=== PATIENT | female | born 1955 | race Caucasian/White ===

== ENCOUNTER 2022-06-12 10:18 | Observation (INO) ==
--- NOTE | 2022-05-24 09:58 | PAT Medication Instructions ---
Medication Instructions Date of Service May 24, 2022 Home Medications Medication Instructions Recorded Jerzy Trejo #1 ea 05/13/22 Medication List: aspirin 81 mg chewable tablet 81 mg PO QAM levothyroxine 100 mcg capsule 112 mcg PO QAM Joint Restore 1 tab PO QAM Olipure 1 tab PO QPM Hudson 2 Plus 1 tab PO QAM cholecalciferol (vitamin D3) 125 mcg (5,000 unit) tablet (Vitamin D3) 125 mcg PO QAM cyanocobalamin (vitamin B-12) 1,000 mcg tablet (Vitamin B-12) 1,000 mcg PO QAM ferrous fumarate 55 mg (18 mg iron) tablet,extended release 65 mg PO UD hydralazine 10 mg tablet 10 mg PO BID ASK your prescriber and surgeon aspirin 81 mg chewable tablet 81 mg PO QAM STOP taking 2 weeks before surgery Hudson 2 Plus 1 tab PO QAM Joint Restore 1 tab PO QAM Olipure 1 tab PO QPM DO NOT take the morning of surgery cholecalciferol (vitamin D3) 125 mcg (5,000 unit) tablet (Vitamin D3) 125 mcg PO QAM cyanocobalamin (vitamin B-12) 1,000 mcg tablet (Vitamin B-12) 1,000 mcg PO QAM ferrous fumarate 55 mg (18 mg iron) tablet,extended release 65 mg PO UD Take morning of surgery With a small sip of water, OTHERWISE NOTHING TO EAT OR DRINK AFTER MIDNIGHT: levothyroxine 100 mcg capsule 112 mcg PO QAM hydralazine 10 mg tablet 10 mg PO BID Take evening before surgery hydralazine 10 mg tablet 10 mg PO BID Other Notes If you have any questions please call us at [phone] or [phone] or [phone] or [phone]
--- NOTE | 2022-05-30 12:37 | Anesthesiology Consultation ---
Date of Service May 30, 2022 Assessment & Plan (1) Encounter for pre-operative examination: - COVID screening: Per assessment on 05/30: No known COVID-19 positive contacts or current COVID-19 related symptoms. Travel screen negative. Patient vaccinated. At surgeon discretion if preop Covid testing being done. - Cardiology office visit (02/26/22): "An echocardiogram was done 09/20/21 (ordered by PCP). This indicated normal LV size and function with an ejection fraction of 55%. Mild mitral regurgitation was noted. Otherwise echocardiogram was unremarkable.. Unchanged from her previous study.. Because of ongoing complaints of chest discomfort, Lexiscan Cardiolite stress test.. Blood pressure noted to be elevated. Hydralazine will be increased" > stress test performed 05/09/2022 was unremarkable. - Outpatient joint assessment: Pt currently scheduled for inpatient pathway. If surgeon requests review for outpatient joint pathway, patient is not recommended candidate for outpatient joint program from anesthesia standpoint. - Cardiology office visit (): "Patient denies any anginal complaints at this time.. occasional chest pain with increased anxiety. Pain is director of revenue cycle management in duration and like a stabbing sensation. No radiation or relief with rest. No further ischemia testing at this time.. Lexiscan stress test 05/09/22 which was negative for ischemia/infarction, EF 66%. No further ischemic testing warranted at this time.. Patients blood pressure today is 146/84. Patient declines increasing the hydralazine at this time. Patient is going to restart her amlodipine 2.5mg daily" Chart Review Chart Review: Acceptable Risk for Surgery and Patient seen in Pre Admission Testing Teaching & Discussion Pre-Anesthesia Teaching/Discussion Notes: Instructed NPO after midnight before surgery,except medications with 15 cc of water. Medication instructions provided according to the PAT guidelines. History Surgery Operation Date: 06/12/22 07:15 Proposed Procedures p Left Total Knee Arthroplasty - Conner James MD Height/Weight Height: 5 ft 4.75 in Weight: 72.8 kg Allergies Allergy/AdvReac Type Severity Reaction Status Date / Time amoxicillin [From Augmentin] Allergy Severe Vomiting Verified 05/23/22 13:09 clavulanic acid Allergy Severe Vomiting Verified 05/23/22 13:09 [From Augmentin] Xioqzhu-ZWV-GfL Reductase Allergy Severe body aches Verified 05/23/22 13:09 Inhibitor [Tjrhlgh-Xxq-Fak Reductase Inhibitor] Medications Home Medications Medication Instructions Recorded Confirmed Last Taken aspirin 81 mg chewable tablet 81 mg PO QAM 05/06/19 05/23/22 Unknown levothyroxine 100 mcg capsule 112 mcg PO QAM 05/06/19 05/23/22 Unknown Wheeled Walker #1 ea 05/13/22 05/13/22 Unknown Joint Restore 1 tab PO QAM 05/23/22 05/23/22 Unknown Olipure 1 tab PO QPM 05/23/22 05/23/22 Unknown [place] 2 Plus 1 tab PO QAM 05/23/22 05/23/22 Unknown cholecalciferol (vitamin D3) 125 125 mcg PO QAM 05/23/22 05/23/22 Unknown mcg (5,000 unit) tablet (Vitamin D3) cyanocobalamin (vitamin B-12) 1,000 mcg PO QAM 05/23/22 05/23/22 Unknown 1,000 mcg tablet (Vitamin B-12) ferrous fumarate 55 mg (18 mg 65 mg PO UD 05/23/22 05/23/22 Unknown iron) tablet,extended release hydralazine 10 mg tablet 10 mg PO BID 05/23/22 05/23/22 Unknown amlodipine 2.5 mg tablet 2.5 mg PO DAILY 05/30/22 05/30/22 Unknown Past Medical History Medical History CAD (coronary artery disease) 2012 > stents x2 Follows with Dr. De La Cruz/WARD Hernandez History of COVID-19 Early to mid 2021- headache, cough > resolved History of myocardial infarction 2010 History of pneumonia 03/2022- treated with abx (not Covid, no hospitalization) Hyperlipidemia Hypertension Hypothyroidism TIMMY (obstructive sleep apnea) CPAP Right knee DJD Thyroid cancer s/p thyroidectomy (no chemo/no XRT) TMJ (temporomandibular joint disorder) Exercise / Class Metabolic Activity II 4-5 Yardwork/Stairs/Walk up hill Past Family History Family History Sister Allergies Asthma Family/Other Hypertension Siblings Heart disease Siblings Past Surgical History Surgical History History of bilateral fallopian tube excision History of bladder surgery 90' History of section 1983 History of heart artery stent 2012- stents x2 History of hysterectomy 1990s History of nasal surgery History of nasal surgery History of shoulder surgery History of thyroidectomy Removed d/t cancer Hx of colonoscopy Nausea and vomiting after administration of anesthetic agent Past Anesthesia History No Hx of Anesthesia Complications (except PONV) and No Family Hx of Anesthesia Complications History of PONV History of PONV and Hx of Motion Sickness Social History Smoking Status: Never smoker Do You Dip or Chew Tobacco: No Hx Alcohol Use: Yes alcohol intake frequency: holidays/special occasions only Hx Substance Use: No substance use type: does not use Substance Use Type Other:: cbd cream in joint gummie Review of Systems Patient denies chest pain, shortness of breath, dyspnea on exertion, fever, chills, cough, wheezing, palpitations. Physical Exam Vital Signs VITALS BP 170/82 (Per patient: BP closely monitored by cardio, systolic BPs typically 140s) P 54 TEMP SP02 96%RA RESP 18 PHYSICAL Full cervical extension range of motion. Full TMJ range of motion. TMD 3 finger breaths Mallampati Score 2 Dentition: intact, + crowns Lungs: clear throughout to auscultation Cardiac: regular rate and rhythm, no murmurs noted Spine: normal Carotid arteries: negative bruit Extremities: no edema Lab Results Anesthesia Preop Results Results Anesthesia Widget: WBC 7.15 K/ul (4.8-10.8) 05/30/22 Hgb 13.7 g/dl (12.0-16.0) 05/30/22 Hct 41.6 % (37.0-47.0) 05/30/22 Plt 235 K/uL (130-400) 05/30/22 Na 142 mmol/L (136-145) 05/30/22 K 3.6 mmol/L (3.5-5.1) 05/30/22 Cl 107 mmol/L (98-107) 05/30/22 CO2 32 mmol/L (21-32) 05/30/22 BUN 16 mg/dl (6-23) 05/30/22 Creat 0.76 mg/dl (0.6-1.2) 05/30/22 Glucose Level 93 mg/dl (70-99(Fasting)) 05/30/22 PT 10.8 Seconds (9.0-12.0) 05/30/22 PTT 25.5 Seconds (21.0-31.0) 05/30/22 INR 1.0 (0.9-1.1) 05/30/22 Blood Type A Positive 05/30/22 Antibody Screen NEGATIVE 05/30/22 Testing Electrocardiogram Date: 04/13/22 SR at 64bpm. "Normal ECG" Chest X-Ray Date: 05/30/22 Findings: + NAD Echocardiogram Date: 09/20/21 EF 55%. Cannot rule out RWMA. Mild MR. PASP cannot be estimated but right atrial pressure normal. Stress Test Date: 05/09/22 Type: nuclear Normal SPECT images. LV global systolic function is normal. Nonspecific nausea and lightheadedness during regadenoson infusion. No ischemic ST segment changes on stress ECG. Occasional isolated PACs. 67% MPHR. Stress report difficult to read. Attempts to obtain more clear copy unsuccessful. Per cardiology office visit note 05/29/22, "Lexiscan stress test on 05/09/22 which was negative for ischemia/infarction, EF 66%. No further ischemic testing warranted at this time" COVID-19 Risk Screen Screening Information COVID-19 Screen Date: 05/30/22 Exposure 21 Days Family/Household +COVID Last 21 Days: No Exposure 10 Days Any COVID Exposure Last 10 Days: No Symptoms Last 10 Days Experienced COVID Sx Last 10 Days: No + COVID 0-90 Days COVID + in Last 0-90 Days: No
--- NOTE | 2022-06-08 19:40 | History and Physical Report ---
DATE OF ADMISSION: 06/12/2022. CHIEF COMPLAINT: Left knee pain. HISTORY OF PRESENT ILLNESS: The patient is a 67-year-old female from [place] who presents for shirley atment of her left knee. She has a several-year history of increasing left knee pain and discomfort that has gotten worse over the past 2 years. No particular injury. She has had extensive conservati ve care including 3 steroid shots and 2 rounds of viscosupplementation provided by Michael whipple in [place]. This has become less successful over time. She has global pain. The more she is up on it, the more it hurts. The knee feels unstable. She would like to have it fixed. Of note, the patient does have a significant cardiac history with cardiac stent placement in the past . She did have a stress echo, which showed no signs of ischemia. PAST MEDICAL HISTORY: 1. Coronary artery disease, status post stent placement with a negative workup and stress echo. 2. Hypothyroidism. 3. Depression. 4. Elevated cholesterol. 5. Hypertension. 6. Anemia. 7. Thyroid cancer. PAST SURGICAL HISTORY: 1. . 2. Bladder surgery. 3. Shoulder surgery. 4. Hysterectomy. 5. Eye surgery. 6. Nose surgery. 7. Thyroid removal. 8. Ovarian tube removal. ALLERGIES: PERCOCET, METOPROLOL, VALSARTAN, HYDROCHLOROTHIAZIDE. CURRENT MEDICATIONS: Include: 1. Hydralazine. 2. Aspirin. 3. Levothyroxine. 4. Amlodipine. 5. Vitamin D. 6. Vitamin B12. 7. Coenzyme Q. 8. Iron. 9. . 10. CBD. SOCIAL HISTORY: A 67-year-old female patient, . Lives in [place]. Five children. Rare alc ohol intake. Does not smoke. FAMILY HISTORY: Significant for thyroid cancer, heart disease. REVIEW OF SYSTEMS: Significant for coronary artery disease with a recent workup, which was negative with a negative stress echo. She may have some reflux. No current chest pain. No bleeding problems . No history of DVT or PE. PHYSICAL EXAMINATION: GENERAL: Pleasant middle-aged female. Looks younger than her stated age. HEENT: Benign. NECK: Supple. No lymphadenopathy. LUNGS: Clear to auscultation. HEART: Has a regular rate and rhythm. ABDOMEN: Soft, nontender, nondistended. EXTREMITIES: Grossly neurovascularly intact except as follows: Examination of the left knee reveale d the patient walks with a slight bit of a limp. She has got varus alignment to her knee. Tender ov er the medial joint line. Range of motion is 5-120. No instability. No pain with hip motion. X-RAYS: X-rays of the left knee reveal advanced medial compartment arthritis. She has got complete loss of her medial joint space. She has subchondral sclerosis. Lateral and patellofemoral compartme nts are pretty well preserved. ASSESSMENT: A 67-year-old female with a history of multiple comorbidities including coronary artery disease, thyroid cancer, status post resection, depression, elevated cholesterol, hypertension with a dvanced left knee medial compartment arthritis. She has failed conservative treatment and would like to have her left knee replaced. PLAN: We are going to proceed with left knee replacement. The risks and benefits of this procedure were explained to the patient and include but not limited to DVT, PE, , infection, neurological injury, vascular injury, bleeding problem, pain, limited range of motion, stiffness, failure to relie ve her symptoms, incomplete relief of symptoms, etc. The patient understands and desires to proceed. Informed consent was obtained. She will take her thyroid medicine in the morning of surgery with a sip of water. She is planning to be discharged to home using [facility] program. Job ID: [id number]
[~2022-06-12 10:18] MED LIST: ACETAMINOPHEN 500 MG TAB PO SCH; ALLERGY Noted to ORDERED Medication SCH; BUPIVACAINE LIPOSOME/PF 266 MG, BUPIVACAINE/EPINEPHRINE 50 ML, SODIUM CHLORIDE 0.9% PF ... INFIL SCH; CeleBREX 200 MG CAP PO SCH; FAMOTIDINE 20 MG TAB PO SCH; LR 500ML BOLUS, THEN 15ML/HR IV SCH; LR 60ML/HR IV SCH; METOCLOPRAMIDE HCL 10 MG TABLET PO SCH; ROPIVACAINE 0.5% 5 MG/ML 30 ML VIAL ONE; Scopolamine 1 MG TDSY TD SCH; TRANEXAMIC ACID 1,000 MG **IV Intra-op IV SCH; ceFAZolin 2000MG 2,000 MG/15 ML SYR IV SCH
--- NOTE | 2022-06-12 10:38 | History & Physical Bridge Note ---
Date of Service June 12, 2022 History & Physical Bridge Note I have examined the patient, reviewed the History & Physical and in the interval since the performance of the History & Physical I have noted the following changes of clinical significance: no changes noted
[2022-06-12] MEDS ORDERED: Nursing to Pharmacy Communication SCH (11:15)
[2022-06-12] MEDS ORDERED: MIDAZOLAM HCL 1 MG/ML 2ML VIAL ONE (11:42)
[2022-06-12] MEDS ORDERED: fentaNYL citrate PF 100 MCG/2 ML VIAL ONE (11:42)
[2022-06-12] MEDS ORDERED: PROPOFOL IV EMULSION 10 MG/ML 20 ML VIAL IV ONE ×2 (11:45→14:26)
[2022-06-12] MEDS ORDERED: BUPIVACAINE 0.5 % 5 MG/1 ML PF 10ML VIAL ONE (12:30)
[2022-06-12] MEDS ORDERED: EPINEPHrine INJ 1 MG/ML AMP ONE (12:30)
[2022-06-12] MEDS ORDERED: SODIUM CHLORIDE 0.9% PF 50 ML VIAL ONE (12:45)
[2022-06-12] MEDS ORDERED: BUPIVACAINE/EPINEPHRINE 0.25% 1:200,000 30 ML VIAL ONE (12:45)
[2022-06-12] MEDS ORDERED: BUPIVACAINE LIPOSOME 1.3% 266 MG/20 ML VIAL ONE (12:45)
--- NOTE | 2022-06-12 14:53 | Operative Report ---
PG Post Operative Report Pre & Post Diagnosis Operation Date: 06/12/22 12:30 Pre-Op Diagnosis: Left Knee Advanced Degenerative Joint Disease Post-Op Diagnosis: Left Knee Advanced Degenerative Joint Disease I identified the patient and participated in the time-out.: Yes Procedure Operation Date: 06/12/22 12:30 Actual Procedures p Left Total Knee Arthroplasty(Left) - Conner James MD Surgeon Conner James MD Co Op Frank Navarrete PA-C Estimated Blood Loss 50 Findings Consistent with Post-Op Diagnosis Operative findings were advanced left knee DJD. She had extensive grade 4 dqxk-vo-heyz disease and eburnation of the entire medial compartment. The rest of her knee was pretty well-preserved. She did have a varus deformity to her knee and a slight flexion contracture. Moderate-sized joint effusion. Specimens Left knee sent for pathology Drains None Anesthesia Type Spinal MAC Complications none Disposition Accompanied Patient To Recovery: No Indications Patient is 67-year-old female has had a several year history of gradual progressive increasing left knee pain discomfort describes gotten worse over time. She been through extensive conservative treatment which became less successful. X-rays show advanced medial compartment arthritis. She elected proceed with surgical treatment. Description of Procedure Operative implants consist of: 1 Biomet size 62.5 left posterior stabilized femoral component. 2. Biomet size 67 tibial tray. 3. 10 mm posterior stabilized polyethylene insert. 4. 28 x 8 all poly patella. The patient was taken to the operating, identified, placed on the operating table supine position protectors were properly padded. IV antibiotics tried by anesthesia team. A spinal anesthetic and abductor canal block had been provided in the holding area. Mederos catheter was placed in sterile fashion. Left factor was then placed in the left lower extremity then prepped and draped in usual sterile fashion. The left leg was elevated and exsanguinated with use of an Esmarch and the tourniquet was placed at 300 mmHg. An anterior approach left knee was then performed through a longitudinal incision centered over the patella. Sharp dissection was got through subcutaneous tissue down the extensor mechanism. A medial parapatellar arthrotomy incision was made. Some subperiosteal dissection was carried out medially. The fat pad was resected from Neath patella tendon. The lateral patellofemoral ligament was released. Patella subluxated laterally knee was flexed. The osteophytes taken off distal femur. The ACL and PCL were then released from distal femur and the tibia subluxated anteriorly. External tibial alignment jig was then placed in the interface the tibia and adjusted 14 mm medially. Proximal tibial cut was made remove millimeter bone at most from most deficient aspect medial tibial plateau. Some osteophytes taken off medially. The tibia sized to a size 67. Attention drawn the femur. The distal femur was then with a sharp drill. Intramedullary canal was suction. A left 5 degree valgus cutting guide was placed. Distal femoral cutting block was pinned in place. Distal femoral cut was made to take an additional 3 mm of bone off distal femur. The femur was then sized to a size 62.5. The AP cutting block was pinned parallel to the epicondylar axis which was 4 degrees of external rotation. Anterior cut, anterior chamfer, posterior cut, posterior chamfer cuts were made. The box cutting guide was placed in a just slightly lat eral and the box cut was made. The knee was flexed. The remnants of the medial and lateral menisci were excised. The osteophytes taken off the posterior aspect the femur. A trial femoral component was placed. Tibial tray was pinned in maximum external rotation and the drill and stem punch used to create defect in proximal tibia for the tibial tray. The knee was then trialed and 10 mm insert fit most appropriately. Attention drawn the patella. The patella was cleaned of all soft tissues. Patella thickness measured 18 mm in thickness was cut down to 12. It was sized to a size 28 patella. The lug holes were drilled for the 28 patella. The lateral osteophyte was removed. Patella button was placed. Knee was taken through range of motion patella tracked nicely with no thumbs test. Attention drawn to placing permanent components. All trial components were removed. Bone plug was placed in the distal femur limit blood loss. Double batch Palacos G cement was mixed. Biomet Vanguard size 62.5 left posterior stabilized femoral component, size 67 tibial tray, 810 mm posterior stabilized polyethylene insert, and a 28 x 8 all poly patella then cemented in place. New spreadout in full extension till cement hardened. Final cement check was then performed. The pericapsular tissues were injected with total of 100 cc of combination of 20 cc of Exparel, 30 cc normal saline, 50 cc of quarter percent Marcaine with epinephrine. Patient did receive 1 g tranexamic acid. The tourniquet was let down for final tourniquet time 54 minutes. Hemostasis reduced electrocautery. Extensor mechanism then closed with combination 1 PDS suture #1 Vicryl suture in [id number] fashion. Extensor mechanism checked found to be intact the subcutaneous tissue then closed with 2 Dexon suture in a buried interrupted fashion skin was closed skin bennie. Leg was then cleaned and dried and sterile dressing with Xeroform, 4 x 4's, sterile cast padding, Morris bandage were applied. Patient then transferred to the recovery room in stable condition. Patient tolerated procedure well and there were no complications. Frank Navarrete, my physician emergency veterinary assistant, was present for the entire procedure. His assistance was essential and required for appropriate patient positioning, prepping and draping, surgical exposure, performing the technical details of the operation, placement the implants, closure of the wound, and placement of the sterile bandage. I attest to the content of the Intraoperative Record and any orders documented therein. Any exceptions are noted below.
[2022-06-12] MEDS ORDERED: FLUMAZENIL 0.1 MG/1 ML 10 ML VIAL IV PRN (15:08)
[2022-06-12] MEDS ORDERED: NALOXONE HCL 0.4 MG/1 ML VIAL/CARP IV PRN ×2 (15:08→16:00)
[2022-06-12] MEDS ORDERED: fentaNYL citrate PF 100 MCG/2 ML VIAL IV PRN (15:08)
[2022-06-12] MEDS ORDERED: ATROPINE SULFATE 0.1 MG/ML 10ML SYR IV PRN (15:08)
[2022-06-12] MEDS ORDERED: ePHEDrine sulfate 50 MG/ML AMP IV PRN (15:08)
[2022-06-12] MEDS ORDERED: PROMETHAZINE HCL 12.5 MG in SODIUM CHLORIDE 0.9% 50 ML IV PRN (15:08)
[2022-06-12] MEDS ORDERED: ONDANSETRON INJ 2 MG/ML 2 ML VIAL IV PRN (15:08)
[2022-06-12] MEDS ORDERED: HYDROmorphone INJ 1 MG/ML SYRINGE IV PRN (15:08)
[2022-06-12] MEDS ORDERED: ALUMINUM/MAGNESIUM SUSP 30 ML UDC PO PRN (16:00)
[2022-06-12] MEDS ORDERED: METOCLOPRAMIDE HCL INJ 5 MG/ML 2 ML VIAL IV PRN (16:00)
[2022-06-12] MEDS ORDERED: MAGNESIUM HYDROXIDE SUSP 30 ML UDC PO PRN (16:00)
[2022-06-12] MEDS ORDERED: SODIUM CHLORIDE 0.9% 1000ML 1,000 ML IV SCH (16:00)
[2022-06-12] MEDS ORDERED: bisacodyL 10 MG SUPP PR PRN (16:00)
[2022-06-12] MEDS ORDERED: HYDROmorphone INJ 0.5 MG/0.5 ML SYR IV PRN (16:00)
--- NOTE | 2022-06-12 16:00 | Anesthesiology Progress Note ---
Date of Service June 12, 2022 Anesthesia Post Procedure Vital Signs Vital Signs: Temp Pulse Resp BP Pulse Ox O2 Del Method O2 Flow Rate 06/12/22 15:35 36.1 C L 51 L 18 151/74 H 99 Room Air 06/12/22 15:30 49 L 17 163/66 H 98 Room Air 06/12/22 15:19 46 L 14 170/73 H 99 Room Air 06/12/22 15:10 46 L 13 164/65 H 99 Room Air 06/12/22 15:00 51 L 14 147/73 H 100 Room Air 06/12/22 14:50 36.2 C L 55 L 15 147/76 H 100 Oxymask 5 06/12/22 14:41 36.2 C L 61 17 141/76 H 99 Oxymask 9 06/12/22 10:59 37 C 57 L 20 158/84 H 97 Room Air Pain Intensity Left Knee: Pain Intensity: 0 Transfer of Care Handoff Completed per policy Notes Mental Status: alert / awake / arousable and participated in evaluation Patient Amnestic to Procedure: Yes Nausea / Vomiting: adequately controlled Pain: adequately controlled Airway Patency, RR, SpO2: stable & adequate BP & HR: stable & adequate Hydration State: stable & adequate Anesthetic Complications: no major complications apparent
[2022-06-12] MEDS: KETOROLAC TROMETHAMINE 15 MG/ML VIAL IV SCH ×2 (16:28→21:08)
[2022-06-12] MEDS: Scopolamine CHECK PATCH PLACEMENT SCH ×2 (16:28→23:39)
[2022-06-12] MEDS: ASCORBIC ACID 500 MG TAB PO SCH (16:37)
[2022-06-12] MEDS: FERROUS SULFATE 325 MG TAB PO SCH (16:37)
[2022-06-12] MEDS: ONDANSETRON INJ 2 MG/ML 2 ML VIAL IV PRN (16:46)
[2022-06-12] MEDS ORDERED: dexAMETHasone 10 MG in SYRINGE 0 ML IV SCH (17:00)
--- NOTE | 2022-06-12 19:28 | XRay Report ---
XR knee LT 1 or 2V routine CLINICAL HISTORY: Surgical Post Op TECHNIQUE: 2 views of the left knee were obtained. Comparison: Comparison is made to knee radiographs 05/13/2022 FINDINGS: Patient is status post total knee arthroplasty with expected postsurgical changes including soft tiss ue swelling and subcutaneous emphysema. No periarticular lucency or hardware fracture is seen. IMPRESSION: Expected postoperative appearance status post placement of total knee arthroplasty. ACT 112: Negative or not required by law. Electronically signed by: Anival Vallejo M.D. 06/12/2022 7:27 PM
[2022-06-12] MEDS ORDERED: TRANEXAMIC ACID / 0.7% NACL 1,000 MG/100 ML BAG IV SCH (21:00)
[2022-06-12] MEDS: ACETAMINOPHEN 500 MG TAB PO SCH (21:06)
[2022-06-12] MEDS: DOCUSATE SODIUM 100 MG CAP PO SCH (21:07)
[2022-06-12] MEDS: ASPIRIN 81 MG ECTAB PO SCH (21:07)
[2022-06-12] MEDS: ceFAZolin 1000MG 1,000 MG/7.5 ML SYR IV SCH (21:07)
[2022-06-12] MEDS: SENNA 8.6 MG TAB PO SCH (21:08)
[2022-06-13] MEDS: ONDANSETRON INJ 2 MG/ML 2 ML VIAL IV PRN ×2 (01:42→09:20)
[2022-06-13] MEDS: HYDROmorphone HCL 2 MG TAB PO PRN ×2 (02:13→09:48)
[2022-06-13] MEDS: LEVOTHYROXINE SODIUM 112 MCG TABLET PO SCH (04:16)
[2022-06-13] MEDS: ceFAZolin 1000MG 1,000 MG/7.5 ML SYR IV SCH (04:16)
[2022-06-13] MEDS: KETOROLAC TROMETHAMINE 15 MG/ML VIAL IV SCH ×4 (05:01→21:30)
[2022-06-13] MEDS: ACETAMINOPHEN 500 MG TAB PO SCH ×3 (05:56→21:25)
[2022-06-13] MEDS: Scopolamine CHECK PATCH PLACEMENT SCH ×2 (08:05→17:43)
[2022-06-13 08:21] LABS: Hematocrit (blood only) 41.1 % (37.0-47.0); Hemoglobin 13.8 g/dl (12.0-16.0); Mean Corpuscular Hemoglobin 29.1 pg (25.0-34.0); Mean Corpuscular Hgb Conc 33.6 g/dL (32.0-36.0); Mean Corpuscular Volume 86.5 fL (80.0-100.0); Mean Platelet Volume 10.3 fL (9.4-12.4); Platelet Count 241 K/uL (130-400); RDW Coefficient of Variation 13.5 % (11.5-14.5); RDW Standard Deviation 42.4 fL (36.4-46.3); Red Blood Count 4.75 M/uL (4.20-5.40); White Blood Count 13.18 K/ul (4.8-10.8)
[2022-06-13] MEDS: amLODIPine BESYLATE 5 MG TAB PO SCH (08:25)
[2022-06-13] MEDS: ASCORBIC ACID 500 MG TAB PO SCH ×2 (08:25→17:45)
[2022-06-13] MEDS: CHOLECALCIFEROL 5,000 UNITS 125 MCG TAB PO SCH (08:26)
[2022-06-13] MEDS: ASPIRIN 81 MG ECTAB PO SCH ×2 (08:26→21:26)
[2022-06-13] MEDS: CYANOCOBALAMIN (B-12) 500 MCG TABLET PO SCH (08:27)
[2022-06-13] MEDS: DOCUSATE SODIUM/SENNA 50/8.6MG TAB PO SCH (08:27)
[2022-06-13] MEDS: OMEGA-3 (PURIFIED FISH OIL) 1 GM CAP PO SCH (08:28)
[2022-06-13] MEDS: MULTIVITAMIN TAB PO SCH (08:28)
[2022-06-13] MEDS: DOCUSATE SODIUM 100 MG CAP PO SCH ×2 (08:28→21:27)
[2022-06-13 08:39] LABS: BUN Creatinine Ratio 20.9 (10-20); Calcium 8.6 mg/dl (8.6-10.3); Creatinine Clr Calc Pharmacy 61.1 ml/min; Est GFR (African American) 79.9 ml/min; Est GFR (Non-African American) 68.9 ml/min; Potassium 3.9 mmol/L (3.5-5.1)
--- NOTE | 2022-06-13 13:49 | Progress Notes ---
DATE OF SERVICE: 06/13/2022. SUBJECTIVE: A 67-year-old female, postoperative day 1 from a left knee replacement. She is doing ok ay. She really feels just wiped out after completing therapy. She struggled through therapy. Pain is reasonably well controlled. Denies any chest pain or shortness of breath. Not feeling dizzy or l ightheaded, just fatigue. OBJECTIVE: VITAL SIGNS: Temperature 37.1. Vital signs are stable. GENERAL: Shows a pleasant middle-aged female. She is lying in bed, looks pretty comfortable, restin g. LUNGS: Clear to auscultation. HEART: Regular rate and rhythm. ABDOMEN: Soft, nontender, nondistended. EXTREMITIES: Grossly neurovascularly intact except as follows. Examination of the left leg reveals the dressing to be clean, dry and intact. She can dorsiflex and plantarflex her foot appropriately. She is neurologically intact. LABORATORY DATA: Hemoglobin 13.8, hematocrit 41.1. Electrolytes are stable. ASSESSMENT: A 67-year-old white female, postoperative day 1 from a left knee replacement, doing okay . She is pretty fatigued from therapy earlier and struggled a little bit with therapy. Pain is reas onably controlled, but still has trouble getting around. PLAN: 1. DVT prophylaxis includes thigh-high TEDs, SCDs, and aspirin twice a day. 2. PT/OT, weightbear as tolerated. Left total knee protocol. 3. Pain control, doing okay with current pain regimen. 4. Disposition: We will see how she does in the afternoon therapy. It is likely she is going to [facility] in the night and hopefully be discharged tomorrow after therapy. Job ID: [id number]
[2022-06-13] MEDS: SENNA 8.6 MG TAB PO SCH (21:27)
[2022-06-14] MEDS: Scopolamine CHECK PATCH PLACEMENT SCH ×4 (01:34→22:22)
[2022-06-14] MEDS: ACETAMINOPHEN 500 MG TAB PO SCH ×3 (04:20→20:41)
[2022-06-14] MEDS: KETOROLAC TROMETHAMINE 15 MG/ML VIAL IV SCH ×2 (04:21→10:10)
[2022-06-14] MEDS: LEVOTHYROXINE SODIUM 112 MCG TABLET PO SCH (06:07)
--- NOTE | 2022-06-14 07:21 | Progress Notes ---
DATE OF SERVICE: 06/14/2022. SUBJECTIVE: A 67-year-old white female postoperative day 2 from a left knee replacement. She is doi ng quite a bit better this morning. The pain seems to be under better control. Seems a bit more res preethi. Denies any chest pain or shortness of breath. OBJECTIVE: VITAL SIGNS: Temperature 36.6. Vital signs are stable. GENERAL: Physical examination shows a pleasant, elderly female. She is lying in bed, looks pretty c omfortable this morning. EXTREMITIES: Examination of the left knee reveals the dressing to be clean, dry, and intact. She ca n dorsiflex and plantarflex her foot appropriately. She is neurologically intact. ASSESSMENT: A 67-year-old white female postoperative day 2 from a left knee replacement, doing reaso nably well. Seems to be doing better this morning. She seems more rested, more comfortable. PLAN: 1. DVT prophylaxis includes thigh-high TEDs, SCDs, and aspirin twice a day. 2. PT/OT, weightbear as tolerated. Left total knee protocol. 3. Pain control, doing okay with current pain regimen. 4. Disposition: Plan to discharge to home with some home health. We will see how she does in [facility] today. Job ID: [id number]
[2022-06-14] MEDS: OMEGA-3 (PURIFIED FISH OIL) 1 GM CAP PO SCH (10:06)
[2022-06-14] MEDS: ASPIRIN 81 MG ECTAB PO SCH ×2 (10:06→20:41)
[2022-06-14] MEDS: ASCORBIC ACID 500 MG TAB PO SCH ×2 (10:06→17:31)
[2022-06-14] MEDS: DOCUSATE SODIUM/SENNA 50/8.6MG TAB PO SCH (10:06)
[2022-06-14] MEDS: amLODIPine BESYLATE 5 MG TAB PO SCH (10:06)
[2022-06-14] MEDS: CYANOCOBALAMIN (B-12) 500 MCG TABLET PO SCH (10:06)
[2022-06-14] MEDS: CHOLECALCIFEROL 5,000 UNITS 125 MCG TAB PO SCH (10:06)
[2022-06-14] MEDS: MULTIVITAMIN TAB PO SCH (10:06)
[2022-06-14] MEDS: DOCUSATE SODIUM 100 MG CAP PO SCH ×2 (10:07→20:40)
[2022-06-14] MEDS: FERROUS SULFATE 325 MG TAB PO SCH (17:31)
[2022-06-14] MEDS: SENNA 8.6 MG TAB PO SCH (20:41)
[2022-06-15] MEDS: ACETAMINOPHEN 500 MG TAB PO SCH (05:00)
[2022-06-15] MEDS: LEVOTHYROXINE SODIUM 112 MCG TABLET PO SCH (05:00)
--- NOTE | 2022-06-15 08:18 | Progress Notes ---
DATE OF SERVICE: 06/15/2022. SUBJECTIVE: A 67-year-old female now postop day 3 from a left knee replacement. She is doing quite a bit better this morning. Continued to feel pretty worn out and just uncomfortable. Getting around better today. Pain is improved. Just feels better all over. OBJECTIVE: VITAL SIGNS: Temperature 36.5. Vital signs are stable. GENERAL: Shows a pleasant middle-aged female. Lying in bed, looks much more comfortable this shira tam EXTREMITIES: Examination of the left leg reveals the dressing is clean, dry and intact. She can rashard siflex and plantarflex her foot appropriately. She can do a straight leg raise. ASSESSMENT: A 67-year-old female, postoperative day #3 from a left knee replacement, doing better. Pain is controlled. Just more comfortable. PLAN: 1. DVT prophylaxis includes thigh-high TEDs, SCDs, and aspirin twice a day. 2. PT/OT, weightbear as tolerated. Left total knee protocol. 3. Pain control, doing okay with current pain regimen. 4. Disposition: Plan to discharge to home with some home health after therapy this morning. Job ID: [id number]
[2022-06-15] MEDS: CHOLECALCIFEROL 5,000 UNITS 125 MCG TAB PO SCH (08:42)
[2022-06-15] MEDS: MULTIVITAMIN TAB PO SCH (08:43)
[2022-06-15] MEDS: ASCORBIC ACID 500 MG TAB PO SCH (08:43)
[2022-06-15] MEDS: CYANOCOBALAMIN (B-12) 500 MCG TABLET PO SCH (08:43)
[2022-06-15] MEDS: amLODIPine BESYLATE 5 MG TAB PO SCH (08:43)
[2022-06-15] MEDS: ASPIRIN 81 MG ECTAB PO SCH (08:43)
[2022-06-15] MEDS: OMEGA-3 (PURIFIED FISH OIL) 1 GM CAP PO SCH (08:43)
[2022-06-15] MEDS: DOCUSATE SODIUM/SENNA 50/8.6MG TAB PO SCH (08:44)
[2022-06-15] MEDS: DOCUSATE SODIUM 100 MG CAP PO SCH (08:44)
--- NOTE | 2022-06-19 12:20 | Discharge Summary ---
Date of Service June 19, 2022 Discharge Data Procedures Performed Operation Date: 06/12/22 12:30 Actual Procedures p Left Total Knee Arthroplasty(Left) - Conner James MD Hospital Course (1) Status post total left knee replacement: This is a 67 year old patient admitted on 06/12/22 and underwent total knee arthroplasty. She tolerated the procedure well and there were no complications. Transferred to the PACU post op and later to the orthopedic floor for further care. She was given ancef for antibiotic prophylaxis. She was also given TAMEKA stockings, SCDs, and aspirin for DVT prophylaxis. Hemoglobin, hematocrit, and vital signs were monitored during her hospital stay and remained stable. Did not require any blood transfusions. There were no complications during her hospital stay. By post op day #3 the patient was tolerating a regular diet, pain was reasonably controlled with oral pain medicine, and she was participating in physical therapy. On post op day #3 the patient was discharged home and set up with home health care. She was given printed discharge instructions including prescriptions for extra strength tylenol, aspirin, cefadroxil, ketorolac, zofran, senokot, and oxycodone. Continue physical therapy, weight bearing as tolerated. Continue TAMEKA stockings. Follow up approximately 2 weeks post op or sooner if there are problems or concerns. Coding Level of Care Code None Diagnoses Status post total left knee replacement Z96.652
== END 2022-06-15 11:16 | disposition home health service (06) ==
LOC: 3N 10:18 → ASU 10:18